=== PATIENT | male | born 1995 | race Caucasian/White ===

== ENCOUNTER → 2020-01-16 | Outpatient (CLI) | payer BC, MEDICAID ==
--- NOTE | 2020-01-16 14:57 | Diagnostic Imaging Report ---
INDICATION: Injury to left hand. TECHNIQUE: AP, oblique, and lateral views of the left hand were obtained. FINDINGS: No fracture or acute bony abnormality is seen. The joint spaces are unremarkable. IMPRESSION: Negative left hand. Dictated by: Dictated on workstation # [id number]
== END ==
LOC: RAD 13:01
PROVIDERS: ATTEND Internal Medicine
DX: S69.92XA Unspecified injury of left wrist, hand and finger(s), initial encounter (principal); X58.XXXA Exposure to other specified factors, initial encounter
CPT/HCPCS: 73130

== ENCOUNTER 2020-02-25 23:49 | Emergency (ER) | payer BC ==
[~2020-02-25] VITALS: Ht 162 cm; Wt 95.0 kg
[2020-02-25] MEDS ORDERED: LACTATED RINGERS 1,000 ML IV ONE (23:57)
[2020-02-26] MEDS ORDERED: ONDANSETRON 4 MG/2 ML (SDV) Z0FRAN ONE (00:10)
[2020-02-26] MEDS ORDERED: KETOROLAC 30 MG/ML VIAL IVP ONE (00:30)
[2020-02-26] MEDS ORDERED: ONDANSETRON 4 MG/2 ML (SDV) Z0FRAN IVP ONE (00:30)
[2020-02-26 00:32] LABS: BASOPHILS % (AUTO) 0 % (0-10); EOSINOPHILS % (AUTO) 0 % (0-10); HEMATOCRIT 47 % (40-54); HEMOGLOBIN 16.2 g/dL (13.3-17.7); LYMPHOCYTES # (AUTO) 1.3 10^3/uL (1.0-4.0); LYMPHOCYTES % (AUTO) 15 % (12-44); MEAN CORPUSCULAR HEMOGLOBIN 30 pg (25-34); MEAN CORPUSCULAR HGB CONC 35 g/dL (32-36); MEAN CORPUSCULAR VOLUME 86 fL (80-99); MEAN PLATELET VOLUME 10.3 fL (9.0-12.2); MONOCYTES # (AUTO) 0.8 10^3/uL (0.0-1.0); MONOCYTES % (AUTO) 9 % (0-12); NEUTROPHILS # (AUTO) 6.9 10^3/uL (1.8-7.8); NEUTROPHILS % (AUTO) 76 % (42-75); PLATELET COUNT 194 10^3/uL (130-400); WHITE BLOOD COUNT 9.2 10^3/uL (4.3-11.0)
[2020-02-26 00:36] LABS: BILIRUBIN,URINE NEGATIVE (NEGATIVE); CLARITY,URINE SL CLOUDY; COLOR,URINE DARK YELLOW; GLUCOSE, URINE (UA) NEGATIVE (NEGATIVE); KETONES,URINE TRACE (NEGATIVE); LEUKOCYTE ESTERASE ,URINE NEGATIVE (NEGATIVE); NITRITE,URINE NEGATIVE (NEGATIVE); PH,URINE 6.5 (5-9); PROTEIN,URINE TRACE (NEGATIVE)
[2020-02-26 00:42] LABS: AMORPHOUS SEDIMENT,UR FEW AMOR URATES /LPF; BACTERIA,URINE TRACE /HPF; SQUAMOUS EPITHELIAL CELL,UR 0-2 /HPF; WBC,URINE 0-2 /HPF
[2020-02-26 00:43] LABS: ALBUMIN 4.1 GM/DL (3.2-4.5); CHLORIDE 99 MMOL/L (98-107); POTASSIUM 4.3 MMOL/L (3.6-5.0); SODIUM 134 MMOL/L (135-145)
[2020-02-26 00:44] LABS: CALCIUM 8.9 MG/DL (8.5-10.1)
[2020-02-26 00:45] LABS: GLUCOSE 113 MG/DL (70-105); PROTHROMBIN TIME PATIENT 13.3 SEC (12.2-14.7); TOTAL PROTEIN 8.1 GM/DL (6.4-8.2)
[2020-02-26 00:47] LABS: BILIRUBIN,TOTAL 0.9 MG/DL (0.1-1.0); CARBON DIOXIDE 23 MMOL/L (21-32)
[2020-02-26 00:49] LABS: ALKALINE PHOSPHATASE 73 U/L (40-136); CREATININE SERUM 0.86 MG/DL (0.60-1.30); GFR ESTIMATED > 60
[2020-02-26 00:50] LABS: BUN/CREATININE RATIO 15
[2020-02-26] MEDS ORDERED: RX-OSELTAMIVIR 75 MG (TAMIFLU) BOX OF 10 PO STA (00:51)
[2020-02-26] MEDS ORDERED: LACTATED RINGERS 1,000 ML IV ONE (00:51)
[2020-02-26 00:52] LABS: ALANINE AMINOTRANSFERASE 30 U/L (0-55); MAGNESIUM 1.8 MG/DL (1.6-2.4)
[2020-02-26] MEDS ORDERED: cefTRIAXone FOR IV USE 1,000 MG in WATER (STERILE) FOR INJECTION 10 ML IV ONE (01:00)
[2020-02-26] MEDS ORDERED: AZITHROMYCIN 250 MG TAB (ZITHROMAX) PO ONE (01:00)
[2020-02-26] MEDS ORDERED: AZIT250T12 PO (01:59)
[2020-02-26] MEDS ORDERED: ONDA4TAB11 SL (01:59)
[2020-02-26] MEDS ORDERED: CEFD300C3 PO (01:59)
--- NOTE | 2020-02-26 02:01 | ED General ---
General Chief Complaint: Fever-Adult/Adol Stated Complaint: HAD BEEN COVID+,HEAD PRESSURE,DEHYDRATED Nursing Triage Note: Pt here with fever; states he was tested positive for Covid 10 ago. He states that he was told to quarantine for 10 days and his quarantine was up today. Fever and ADKINS onset today. Nursing Sepsis Screen: Possible Sepsis Risk Source of Information: Patient Exam Limitations: No Limitations History of Present Illness Date Seen by Provider: Feb 26, 2020 Time Seen by Provider: 23:45 Initial Comments This 24 year old young man presents to the ER by private vehicle with fever, SOA, dizziness, nausea and headache. he finished 10 days of quarantine for C OVID-19 today. He was feeling well this morning but began feeling ill this afternoon. Allergies and Home Medications Allergies Coded Allergies: No Known Drug Allergies (Unverified , 07/17/13) Home Medications Azithromycin 250 Mg Tablet, 250 MG PO DAILY Prescribed by: MILAN TARIQ on 02/26/20158 Cefdinir 300 Mg Capsule, 300 MG PO BID Prescribed by: MILAN TARIQ on 02/26/20158 Ondansetron 4 Mg Tab.rapdis, 4 MG SL Q4H PRN for NAUSEA/VOMITING Prescribed by: MILAN TARIQ on 02/26/20158 Patient Home Medication List Home Medication List Reviewed: Yes Review of Systems Review of Systems Constitutional: see HPI EENTM: no symptoms reported Respiratory: see HPI Cardiovascular: no symptoms reported Gastrointestinal: see HPI Genitourinary: no symptoms reported Musculoskeletal: muscle pain Skin: no symptoms reported Psychiatric/Neurological: See HPI Hematologic/Lymphatic: No Symptoms Reported Immunological/Allergic: no symptoms reported Past Mfxuqem-Khazbo-Xiuwpm Hx Past Med/Social Hx: Reviewed Nursing Past Med/Soc Hx Patient Social History Alcohol Use: Occasionally Uses Recreational Drug Use: No Smoking Status: Never a Smoker Recent Foreign Travel: No Contact w/Someone Who Travel: No Recent Infectious Disease Expo: Yes Immunizations Up To Date Tetanus Booster (TDap): Less than 5yrs Past Medical History Surgeries: No Respiratory: No Cardiac: No Neurological: No Reproductive Disorders: No Gastrointestinal: No Musculoskeletal: No Endocrine: No Cancer: No Psychosocial: No Integumentary: No Blood Disorders: No Physical Exam Vital Signs Vital Signs - First Documented 02/26/20 02/26/20 00:10 00:54 Temp 38.6 Pulse 104 Resp 18 B/P (MAP) 119/87 (98) Pulse Ox 98 O2 Delivery Room Air Capillary Refill : Less Than 3 Seconds Height, Weight, BMI Height: 5'6" Weight: 120lbs. oz. 54.289179eg; 36.00 BMI Method:Stated General Appearance: WD/WN, Mild Distress HEENT: Normal ENT Inspection, Other (oropharynx dry, eyes inflamed and watery) Neck: Normal Inspection Respiratory: No Accessory Muscle Use, No Respiratory Distress, Crackles (right base), Decreased Breath Sounds Cardiovascular: No Edema, No Murmur, Tachycardia Gastrointestinal: Normal Bowel Sounds, Non Tender, Soft Extremity: Normal Inspection, No Pedal Edema Neurologic/Psychiatric: Alert, Oriented x3, No Motor/Sensory Deficits, Normal Mood/Affect, legal transcriptionist II-XII Norm as Tested Skin: Normal Color, Warm/Dry Focused Exam Lactate Level 02/26/20 00:19: Lactic Acid Level 1.08 Lactic Acid Level Progress/Results/Core Measures Suspected Sepsis Recent Fever Within 48 Hours: No Infection Criteria Present: Documented Infection New/Unexplained Altered Menta: No Sepsis Screen: Possible Sepsis Risk SIRS Temperature: Pulse: 104 Respiratory Rate: 18 Laboratory Tests 02/26/20 00:19: White Blood Count 9.2 Blood Pressure 119 /87 Mean: 95 02/26/20 00:19: Lactic Acid Level 1.08 Laboratory Tests 02/26/20 00:19: Creatinine 0.86, INR Comment 1.0, Platelet Count 194, Total Bilirubin 0.9 Results/Orders Lab Results Laboratory Tests Test 02/26/20 00:19 02/26/20 00:27 Range/Units White Blood Count 9.2 4.3-11.0 10^3/uL Red Blood Count 5.45 4.30-5.52 10^6/uL Hemoglobin 16.2 13.3-17.7 g/dL Hematocrit 47 40-54 % Mean Corpuscular Volume 86 80-99 fL Mean Corpuscular Hemoglobin 30 25-34 pg Mean Corpuscular Hemoglobin Concent 35 32-36 g/dL Red Cell Distribution Width 12.8 10.0-14.5 % Platelet Count 194 130-400 10^3/uL Mean Platelet Volume 10.3 9.0-12.2 fL Immature Granulocyte % (Auto) 1 % Neutrophils (%) (Auto) 76 H 42-75 % Lymphocytes (%) (Auto) 15 12-44 % Monocytes (%) (Auto) 9 0-12 % Eosinophils (%) (Auto) 0 0-10 % Basophils (%) (Auto) 0 0-10 % Neutrophils # (Auto) 6.9 1.8-7.8 10^3/uL Lymphocytes # (Auto) 1.3 1.0-4.0 10^3/uL Monocytes # (Auto) 0.8 0.0-1.0 10^3/uL Eosinophils # (Auto) 0.0 0.0-0.3 10^3/uL Basophils # (Auto) 0.0 0.0-0.1 10^3/uL Immature Granulocyte # (Auto) 0.1 0.0-0.1 10^3/uL Prothrombin Time 13.3 12.2-14.7 SEC INR Comment 1.0 0.8-1.4 Activated Partial Thromboplast Time 33 24-35 SEC Sodium Level 134 L 135-145 MMOL/L Potassium Level 4.3 3.6-5.0 MMOL/L Chloride Level 99 98-107 MMOL/L Carbon Dioxide Level 23 21-32 MMOL/L Anion Gap 12 5-14 MMOL/L Blood Urea Nitrogen 13 7-18 MG/DL Creatinine 0.86 0.60-1.30 MG/DL Estimat Glomerular Filtration Rate > 60 BUN/Creatinine Ratio 15 Glucose Level 113 H 70-105 MG/DL Lactic Acid Level 1.08 0.50-2.00 MMOL/L Calcium Level 8.9 8.5-10.1 MG/DL Corrected Calcium 8.8 8.5-10.1 MG/DL Magnesium Level 1.8 1.6-2.4 MG/DL Total Bilirubin 0.9 0.1-1.0 MG/DL Aspartate Amino Transf (AST/SGOT) 27 5-34 U/L Alanine Aminotransferase (ALT/SGPT) 30 0-55 U/L Alkaline Phosphatase 73 40-136 U/L Lactate Dehydrogenase 396 H 125-220 U/L C-Reactive Protein High Sensitivity 8.18 H 0.00-0.50 MG/DL Total Protein 8.1 6.4-8.2 GM/DL Albumin 4.1 3.2-4.5 GM/DL Procalcitonin 0.08 <0.10 NG/ML Urine Color DARK YELLOW Urine Clarity SL CLOUDY Urine pH 6.5 5-9 Urine Specific Novi 1.025 H 1.016-1.022 Urine Protein TRACE H NEGATIVE Urine Glucose (UA) NEGATIVE NEGATIVE Urine Ketones TRACE H NEGATIVE Urine Nitrite NEGATIVE NEGATIVE Urine Bilirubin NEGATIVE NEGATIVE Urine Urobilinogen 1.0 < = 1.0 MG/DL Urine Leukocyte Esterase NEGATIVE NEGATIVE Urine RBC (Auto) NEGATIVE NEGATIVE Urine RBC NONE /HPF Urine WBC 0-2 /HPF Urine Squamous Epithelial Cells 0-2 /HPF Urine Crystals PRESENT H /LPF Urine Amorphous Sediment FEW NAHED URATES H /LPF Urine Bacteria TRACE /HPF Urine Casts NONE /LPF Urine Mucus MODERATE H /LPF Urine Culture Indicated NO Micro Results Microbiology 02/26/20 Influenza Types A,B Antigen (SANDRA) - Final, Complete My Orders Orders - MILAN GUZMAN MD Cbc With Automated Diff (02/25/20 23:57) Comprehensive Metabolic Panel (02/25/20 23:57) Magnesium (02/25/20 23:57) Ed Iv/Invasive Line Start (02/25/20 23:57) Lactated Ringers (Lr 1000 Ml Iv Solution (02/25/20 23:57) Ondansetron Injection (Zofran Injectio (02/26/20 00:10) Hs C Reactive Protein (02/26/20 00:16) Ua Culture If Indicated (02/26/20 00:16) Procalcitonin (Pct) (02/26/20 00:16) LDH (02/26/20 00:16) Influenza A And B Antigens (02/26/20 00:16) Blood Culture (02/26/20 00:16) Protime With Inr (02/26/20 00:16) Partial Thromboplastin Time (02/26/20 00:16) Chest 1 View, Ap/Pa Only (02/26/20 00:16) Vital Signs Adult Sepsis Patie Q15M (02/26/20 00:16) Remove Rings In Anticipation O (02/26/20 00:16) Lactic Acid Analyzer (02/26/20 00:16) Ketorolac Injection (Toradol Injection) (02/26/20 00:30) Ondansetron Injection (Zofran Injectio (10/13/20 00:30) Lactated Ringers (Lr 1000 Ml Iv Solution (02/26/20 00:51) Rx-Oseltamivir Caps (Rx-Tamiflu Caps) (02/26/20 00:51) Ceftriaxone For Iv Use (Rocephin For I (02/26/20 01:00) Azithromycin Tablet (Zithromax Tablet) (02/26/20 01:00) Medications Given in ED Vital Signs/I&O 02/26/20 02:26 Temp 37.1 Pulse 96 Resp 18 B/P (MAP) 98/61 Pulse Ox 99 O2 Delivery Room Air Capillary Refill : Less Than 3 Seconds Blood Pressure Mean: 95 Progress Note : Progress Note Patient tested positive for influenza B. He was started on Tamiflu. A take- home box was dispensed. Chest x-ray revealed a right lower lobe pneumonia. He was started on Rocephin and azithromycin. 2 L of IV fluids were infused. Torad ol was given for headache. Zofran was given for nausea. Patient's is and near term. He was advised to call her sign designer in the morning. Departure Impression Primary Impression: Influenza A Additional Impressions: Right lower lobe pneumonia Qualified Codes: J18.9 - Pneumonia, unspecified organism Nausea COVID-19 Disposition: 01 HOME, SELF-CARE Condition: Improved Departure-Patient Inst. Decision time for Depature: 01:56 Referrals: ABRIL HOLMAN DO (PCP/Family) Primary Care Physician Patient Instructions: Community-Acquired Pneumonia in Adults, Flu Add. Discharge Instructions: Drink plenty of clear liquids to stay well-hydrated. Start your antibiotics this evening and complete the entire course of both antibiotics. Use Zofran as prescribed for nausea and vomiting. Complete all 10 doses of Tamiflu. Stay away from your and children is much as possible until you are free of fever for at least 24 hours without fever reducing medications. You may use Tylenol and/or ibuprofen for pain and fever. Return to care if you have worsening symptoms. All discharge instructions reviewed with patient and/or family. Voiced un derstanding. Scripts Azithromycin (Azithromycin) 250 Mg Tablet 250 MG PO DAILY, #4 TAB Prov: MILAN GUZMAN MD 02/26/20 Cefdinir (Cefdinir) 300 Mg Capsule 300 MG PO BID, #14 CAP 0 Refills Prov: MILAN GUZMAN MD 02/26/20 Ondansetron (Ondansetron Odt) 4 Mg Tab.rapdis 4 MG SL Q4H PRN for NAUSEA/VOMITING, #10 TAB Prov: MILAN GUZMAN MD 02/26/20 Copy Copies To 1: ABRIL HOLMAN JOSHUA T MD Feb 26, 2020 02:01
[2020-02-26 02:26] VITALS: BP 98/61
--- NOTE | 2020-02-26 02:27 | NUR ---
Patient reports he feels much better; d/c education provided and verbal understanding noted. Pt ambulated from ER without incident.
--- NOTE | 2020-02-26 07:35 | Diagnostic Imaging Report ---
INDICATION: Fever and cough. Congestion. COMPARISON: None FINDINGS: Single frontal radiographic view of the chest was obtained and shows low inspiratory volumes with patchy areas of geographic interstitial infiltrate within both lung bases, right greater than left. There is likely some superimposed atelectasis as well. There is no large effusion or pneumothorax. Cardiac silhouette and pulmonary vasculature are within normal limits. Osseous structures show no acute abnormalities. IMPRESSION: 1. Bibasilar infiltrates, right greater than left. Dictated by: Dictated on workstation # [id number]
== END 2020-02-26 02:28 | disposition home or self-care (01) ==
LOC: EDUNIT# 23:49 → ER 23:51
DX: J10.1 Influenza due to other identified influenza virus with other respiratory manifestations (principal); J18.1 Lobar pneumonia, unspecified organism; R11.0 Nausea
CPT/HCPCS: 36415; 71045; 80053; 81000; 83605; 83615; 83735; 84145; 85025; 85610; 85730; 86141; 87040; 87804

== ENCOUNTER → 2020-12-02 | Outpatient (CLI) | payer BC ==
[~2020-12-02] MED LIST: AZIT250T12 PO; CEFD300C3 PO; ONDA4TAB11 SL
--- NOTE | 2020-12-02 15:42 | Diagnostic Imaging Report ---
Indication: Pain in right ring finger. AP, oblique, lateral views of the right hand were obtained. There is cortical irregularity with step-off in the 4th distal phalanx, best seen on the lateral view. This finding is of indeterminate age, correlate for point tenderness in this area. There is no other abnormal finding. Impression: There is a focal area of cortical irregularity with step-off in the 4th distal phalanx, seen only on the lateral view. This may be a nondisplaced fracture, but is of uncertain age, correlate for point tenderness in this area. Dictated by: Dictated on workstation # [id number]
== END ==
LOC: RAD 15:07
PROVIDERS: ATTEND Internal Medicine
DX: M79.644 Pain in right finger(s) (principal); M79.641 Pain in right hand
CPT/HCPCS: 73130